=== PATIENT | male | born 1995 | race Caucasian/White ===

== ENCOUNTER 2021-06-23 06:52 | Emergency (ER) | payer OTHER ==
[~2021-06-23] VITALS: Ht 162.6 cm; Wt 69.0 kg
[2021-06-23 07:04] VITALS: BP 143/83
== END 2021-06-23 08:27 | disposition home or self-care (01) ==
LOC: ER 07:20
DX: Z02.89 Encounter for other administrative examinations (principal)
CPT/HCPCS: 99283